=== PATIENT | female | born 1950 ===

== ENCOUNTER 2017-03-28 18:12 | Emergency (ER) | payer SELFPAY ==
[2017-03-28 18:57] VITALS: BP 158/81; PULSE 78; RESP 18; TEMP 98.6; O2SAT 97
--- NOTE | 2017-03-28 19:57 | C.PDOC ---
History Of Present Illness Belinda Yo is a 66 year old female, with a past medical history of hypertension, who presents to the emergency department for medicine refill. Patient reports he arrived from [facility] yesterday, and lost suitcase with medications. She is requesting to have blood pressure medication prescribed: Norvasc 5 mg+ cozaar 100mg combination. bisoprolol 5mg + HCTZ 12.5mg combination. patient denies any fever, chill, nausea, vomit, or abdominal pain. Patient has no complaints of symptoms. PMD: None provided. Time Seen by Provider: 03/28/17 19:07 Chief Complaint (Nursing): Med Refill History Per: Patient History/Exam Limitations: no limitations Onset/Duration Of Symptoms: Days (x1) Past Medical History Reviewed: Historical Data, Nursing Documentation, Vital Signs Vital Signs: Last Vital Signs Temp 98.6 F 03/28/17 18:45 Pulse 78 03/28/17 18:45 Resp 18 03/28/17 18:45 BP 158/81 H 03/28/17 18:45 Pulse Ox 97 03/28/17 20:56 - Medical History PMH: HTN Family History: States: Unknown Family Hx - Social History Hx Alcohol Use: No Hx Substance Use: No - Immunization History Hx Tetanus Toxoid Vaccination: No Hx Influenza Vaccination: No Hx Pneumococcal Vaccination: No Review Of Systems Except As Marked, All Systems Reviewed And Found Negative. Constitutional: Negative for: Fever, Chills Gastrointestinal: Negative for: Nausea, Vomiting, Abdominal Pain Physical Exam - Physical Exam Appears: Well, Non-toxic, No Acute Distress Skin: Normal Color, Warm, Dry Eye(s): bilateral: Normal Inspection Ear(s): Bilateral: Normal Nose: Normal Throat: Normal Neck: Normal Chest: Symmetrical Cardiovascular: Rhythm Regular Respiratory: Normal Breath Sounds Extremity: Normal ROM Neurological/Psych: Oriented x3, Normal Speech, Normal Cognition, Normal Motor, Normal Sensation ED Course And Treatment O2 Sat by Pulse Oximetry: 97 (RA) Pulse Ox Interpretation: Normal Medical Decision Making Medical Decision Making: Initial Plan: -medications were reviewed and refills will be provided. Scribe Attestation The documentation for this encounter was entered by Jose Barrow acting as a scribe for Pat WEATHERS All medical record entries made by the Scribe were at my direction and personally dictated by me. I have reviewed the chart and agree that the record accurately reflects my personal performance of the history, physical exam, medical decision making, and the department course for this patient. I have also personally directed, reviewed, and agree with the discharge instructions and disposition. Disposition Counseled Patient/Family Regarding: Studies Performed, Diagnosis, Need For Followup, Rx Given - Disposition Referrals: [facility] [Outside] [facility] [Outside] Disposition: HOME/ ROUTINE Disposition Time: 19:58 Condition: STABLE Additional Instructions: FOLLOW UP IN CLINIC FOR RE-EVALUATION. IF SYMPTOMS GET WORSE OR ANY NEW CONCERNING SYMPTOMS DEVELOP RETURN TO ED. Prescriptions: Losartan [Cozaar] 100 mg PO DAILY #15 tab amLODIPine [Norvasc] 5 mg PO DAILY #15 tab Bisoprolol/HCTZ [Ziac 5-6.25 mg] 1 tab PO DAILY #15 tab Instructions: Medicine Refill (ED) Forms: [facility] ([place] Islander), Gen Discharge Inst Welsh Print Language: YAKUT - Clinical Impression Clinical Impression: Review of medication
== END 2017-03-28 20:17 | disposition home or self-care (01) ==
LOC: C.ER 18:12
DX: Z76.0 Encounter for issue of repeat prescription (principal); I10 Essential (primary) hypertension